=== PATIENT | female | born 1985 ===

== ENCOUNTER 2017-08-18 03:01 | Emergency (ER) | payer SELFPAY ==
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
[2017-08-18 06:09] VITALS: BP 126/79; PULSE 90; RESP 18; TEMP 97.8
[2017-08-18 06:36] VITALS: O2SAT 97
== END 2017-08-18 06:10 | disposition home or self-care (01) ==
LOC: C.ER 03:01
DX: S16.1XXA Strain of muscle, fascia and tendon at neck level, initial encounter (principal); S30.0XXA Contusion of lower back and pelvis, initial encounter; Y04.0XXA Assault by unarmed brawl or fight, initial encounter
CPT/HCPCS: 96372; 99284; J1885